=== PATIENT | male | born 1990 | race Two or more races ===

== ENCOUNTER 2021-09-11 07:52 | Outpatient (REF) | payer OTHER, SELFPAY ==
[2021-09-11 08:07] LABS: MANUAL DIFF FLAG NO
[2021-09-11 08:25] LABS: Basophils Percent Auto 0.5 % (0-2); Eosinophils Absolute Auto 0.1 X10*3/uL (0.0-0.4); Eosinophils Percent Auto 1.7 % (0-4); Hematocrit 47.4 % (42.0-52.0); Hemoglobin 15.9 g/dl (14.0-18.0); Imm Gran Abs Auto 0.02 X10*3/uL (0.00-0.03); Imm Gran Pct Auto 0.3 % (0.0-0.4); Lymphocytes Percent Auto 35.3 % (20-40); Mean Corpuscular HGB Conc 33.5 g/dl (31.0-36.0); Mean Corpuscular Hemoglobin 29.1 pg (27.0-33.0); Mean Corpuscular Volume 86.7 fL (80.0-98.0); Mean Platelet Volume 9.3 fL (9.4-12.4); Monocytes Absolute Auto 0.7 X10*3/uL (0.1-1.2); Monocytes Percent Auto 12.8 % (2-11); Neutrophils Absolute Auto 2.8 x10*3/uL (2.0-8.3); Neutrophils Percent Auto 49.4 % (45-73); Platelet Count 273 X10*3/uL (160-400); Red Blood Count 5.47 X10*6/uL (4.60-5.80); Red Cell Distribution Width 12.2 % (11.0-16.0); White Blood Count 5.7 X10*3/uL (4.8-10.8)
[2021-09-11 08:51] LABS: Alanine Aminotransferase 13 U/L (0-40); Albumin Level 4.5 g/dL (3.5-5.0); Alkaline Phosphatase 44 U/L (39-117); Anion Gap 11 (12-20); Aspartate Amino Transferase 12 U/L (5-37); Bilirubin Total 0.9 mg/dL (0.0-1.0); Blood Urea Nitrogen 10 mg/dL (9-16); Calcium 9.5 mg/dL (8.4-10.2); Carbon Dioxide 30 mmol/L (22-29); Chloride 101 mmol/L (96-108); Cholesterol 175 mg/dL; Estimated Glomerular Filt Rate > 60; Glucose Fasting 89 mg/dL (60-99); HDL Cholesterol 42 mg/dL; LDL Cholesterol Calculated 122 mg/dl; Potassium 4.4 mmol/L (3.3-5.1); Sodium 138 mmol/L (135-145); Total Protein 7.7 g/dL (6.5-8.0); Triglycerides 55 mg/dL
[2021-09-11 09:11] LABS: TSH reflex Free T4 1.26 uIU/mL (0.32-4.0); Vitamin D 25-OH Total 17.5 ng/mL (>30)
[2021-09-11 09:16] LABS: Appearance Urine CLEAR; Color Urine YELLOW; Glucose Urine UA NEG (NEG); Leukocyte Esterase Urine NEG (NEG); Nitrite Urine NEG (NEG); Specific Gravity - Urine 1.015 (1.005-1.025); Urine Blood NEG (NEG); Urine Ketones 15 MG/DL (NEG); Urine Protein NEG (NEG-TRACE)
== END 2021-09-11 07:53 | disposition home or self-care (01) ==
LOC: HO.LAB 07:52
PROVIDERS: PCP Internal Medicine; Visit Provider Internal Medicine
DX: Z00.00 Encounter for general adult medical examination without abnormal findings (principal); E66.9 Obesity, unspecified; E55.9 Vitamin D deficiency, unspecified
CPT/HCPCS: 36415; 80053; 80061; 81003; 82306; 84443; 85025

== ENCOUNTER 2021-10-22 11:17 | Emergency (ER) | payer OTHER, SELFPAY ==
--- NOTE | ~2021-10-22 | US_ITS ---
EXAMINATION: US SCROTUM CLINICAL INFORMATION: Testicular pain.. COMPARISON: None TECHNIQUE: A sonogram of the scrotum was performed assessing love-scale appearance and color Doppler flow. Spectral Doppler analysis of the arterial and venous flow were performed in the testes bilaterally. FINDINGS: RIGHT: Right testicle measures 4.6 x 2.2 x 2.9 cm, volume 15.6 mL. No focal testicular parenchymal lesions are visualized except for multiple echogenic calcifications. The largest calcification measures 0.1 x 0.2 x 0.2 cm.. Spectral Doppler analysis of the arterial and venous flow is normal in the right testis. Right epididymal head is normal in size. There is a right epididymal cyst measuring 0.3 x 0.3 x 0.3 cm. No right hydrocele or varicocele is seen. Right epididymal Doppler flow is normal. LEFT: Left testicle measures 4.5 x 2.2 x 3.2 cm, volume 16.0 mL. No focal testicular parenchymal lesions are visualized axial small echogenic calcification. The largest measuring 0.06 x 0.05 x 0.05. Spectral Doppler analysis of the arterial and venous flow is normal in the left testis. Left epididymal head is normal in size. There is a small left epididymal cyst measuring 0.5 0.3 x 0.3 cm. There is a small left hydrocele. No varicocele is seen. Left epididymal Doppler flow is normal. US/US scrotum doppler IMPRESSION: Bilateral testicular echogenic calcifications but no focal lesion. Normal flow. Normal bilateral epididymis except for bilateral epididymal cysts and small left hydrocele.
--- NOTE | ~2021-10-22 | US_ITS ---
EXAMINATION: US SCROTUM CLINICAL INFORMATION: Testicular pain.. COMPARISON: None TECHNIQUE: A sonogram of the scrotum was performed assessing love-scale appearance and color Doppler flow. Spectral Doppler analysis of the arterial and venous flow were performed in the testes bilaterally. FINDINGS: RIGHT: Right testicle measures 4.6 x 2.2 x 2.9 cm, volume 15.6 mL. No focal testicular parenchymal lesions are visualized except for multiple echogenic calcifications. The largest calcification measures 0.1 x 0.2 x 0.2 cm.. Spectral Doppler analysis of the arterial and venous flow is normal in the right testis. Right epididymal head is normal in size. There is a right epididymal cyst measuring 0.3 x 0.3 x 0.3 cm. No right hydrocele or varicocele is seen. Right epididymal Doppler flow is normal. LEFT: Left testicle measures 4.5 x 2.2 x 3.2 cm, volume 16.0 mL. No focal testicular parenchymal lesions are visualized axial small echogenic calcification. The largest measuring 0.06 x 0.05 x 0.05. Spectral Doppler analysis of the arterial and venous flow is normal in the left testis. Left epididymal head is normal in size. There is a small left epididymal cyst measuring 0.5 0.3 x 0.3 cm. There is a small left hydrocele. No varicocele is seen. Left epididymal Doppler flow is normal. US/US scrotum IMPRESSION: Bilateral testicular echogenic calcifications but no focal lesion. Normal flow. Normal bilateral epididymis except for bilateral epididymal cysts and small left hydrocele.
[2021-10-22 11:38] VITALS: BP 142/88; PULSE 110; RESP 16; TEMP 36.6; O2SAT 97; BMI 33.0
--- NOTE | 2021-10-22 11:47 | ED.MALEGU ---
HPI - Male Genitourinary General Chief complaint: Urogenital-Male Stated complaint: Testicle pain Time Seen by Provider: 10/22/21 11:46 Source: patient Mode of arrival: ambulatory Limitations: no limitations History of Present Illness HPI Narrative: 31 y/o male with history of Asperger's syndrome, obesity who presents to the ER with intermitten testicular pains for the last 1 month. He reports the pain is a dull ache and it comes and goes. Two weeks ago it was severe and went away with rest and anti-inflammatory medication. He reports intermittent and mild dysuria and frequency but denies any hematuria, flank pain, N/V/D or abdominal pain. Denies any sexual activity and says he is a virgin. Complaint: testicle pain Onset (ago): week(s) (4) Duration: constant Location: right testicle and left testicle Severity: moderate Severity scale (1-10): 5 Quality: aching and dull Relieving factors: medication Exacerbating factors: palpation Associated symptoms: Reports dysuria Related Data Sexually active: No Previous Rx's Medication Instructions Recorded levofloxacin 500 mg tablet 500 mg PO DAILY #10 tab 10/22/21 naproxen 500 mg tablet 500 mg PO BID #20 tab 10/22/21 Allergies Allergy/AdvReac Type Severity Reaction Status Date / Time No Known Allergies Allergy Unverified 09/05/21 16:51 [No Known Allergies*] Review of Systems Review of Systems: Constitutional: No Fever, No Chills ENT/Mouth: No sore throat Cardiovascular: No Chest Pain, No SOB Gastrointestinal: No Nausea, No Vomiting, No Diarrhea, No abdominal Pain, No Hematochezia, No Melena Genitourinary: + Dysuria, + Urinary Frequency, No Hematuria, +testicular pain, No genital lesions Musculoskeletal: No joint pain, No Myalgias Skin: No Skin Lesions, No rash Psych: +Anxiety/Panic, No Depression Heme/Lymph: No Lymphadenopathy Endocrine: No Polyuria, No Polydipsia PMFSH Past Medical History Medical History (Updated 10/22/21 @ 14:12 by HECTOR Rodarte) Asperger's syndrome Attention deficit disorder (ADD) Autism Learning disability Major depression Obesity (BMI 30-39.9) Surgical History No pertinent past surgical history Family History Family History Mother No problems noted. Father No problems noted. Other Substance abuse Social History Social History Housing: House Alcohol intake: never Patient Tobacco Use Status: Never used Tobacco Second Hand Smoke Exposure: Yes Advance Directives: No service: No Current occupational status: disabled Physical Exam Vital Signs: Vital Signs: Last Vital Signs Temp 97.8 F 10/22/21 11:38 Pulse 110 H 10/22/21 11:38 Resp 16 10/22/21 11:38 BP 142/88 H 10/22/21 11:38 Pulse Ox 97 10/22/21 11:38 BMI result Body Mass Index 33.0 Course Course Course Narrative: 31 y/o male presenting with intermittent bilateral testicular pain L>R that has been coming and going for 1 month. Not sexually active. Also reports mild dysuria and urinary frequency. No abdominal pain, nausea, vomiting. On arrival his vital signs are normal. Exam is unremarkable. Will get testicular ultrasound and urinalysis. Reevaluation(s) Reevaluation #1: Testicular ultrasound showing bilateral testicle calcifications are no focal lesions, there is normal flow. There is normal bilateral epididymis except for bilateral epididymal cysts and small left hydrocele. Given his symptoms will empirically treat with 10 day course of Levaquin and have follow-up with Dr. Boo from urology. Patient agrees with plan. Stable for discharge home. MDM - Male Genitourinary Lab Data Labs: Lab Results 10/22/21 Range/Units 14:00 Urine Color YELLOW Urine Appearance CLEAR Urine pH 7.0 (5.0-8.0) Ur Specific [place] 1.020 (1.005-1.025) Urine Protein NEG (NEG-TRACE) MG/DL Urine Glucose (UA) NEG (NEG) MG/DL Urine Ketones NEG (NEG) MG/DL Urine Blood NEG (NEG) Urine Nitrite NEG (NEG) Ur Leukocyte Esterase NEG (NEG) Critical Care Time Critical Care Time Critical Care Time: No Discharge Plan Discharge Clinical Impression: Testicular pain Patient Disposition: Home, Self-Care Additional Instructions: Your ultrasound today was unremarkable. Your urinalysis was negative for infection. Take the prescribed antibiotic for possible inflammation and infection of the epididymis. Recommend following up with Urology in 2 weeks. If you develop new or worsening symptoms call 911 or come back to the ER for further evaluation. Prescriptions: New levofloxacin 500 mg tablet 500 mg PO DAILY Qty: 10 0RF naproxen 500 mg tablet 500 mg PO BID Qty: 20 0RF Referrals: Nathaniel Boo MD [Physician] - 2 weeks (testicular pain x1 month)
[2021-10-22 14:08] LABS: Appearance Urine CLEAR; Color Urine YELLOW; Glucose Urine UA NEG (NEG); Leukocyte Esterase Urine NEG (NEG); Nitrite Urine NEG (NEG); Urine Blood NEG (NEG); Urine Ketones NEG (NEG); Urine Protein NEG (NEG-TRACE)
[2021-10-22 16:23] LABS: CT PCR NOT DETECTED (Not Detect.); NG PCR NOT DETECTED (Not Detect.)
== END 2021-10-22 14:33 | disposition home or self-care (01) ==
PROVIDERS: Physician Assistant; Emergency Provider Emergency Medicine; PCP Internal Medicine
DX: N50.811 Right testicular pain (principal); N50.812 Left testicular pain; Z79.899 Other long term (current) drug therapy
CPT/HCPCS: 76870; 81003; 87491; 87591; 93975; 99284

== ENCOUNTER 2021-11-01 08:55 | Emergency (ER) | payer OTHER, SELFPAY ==
--- NOTE | ~2021-11-01 | US_ITS ---
EXAMINATION: US SCROTUM CLINICAL INFORMATION: Left greater than right testicular pain. COMPARISON: Ultrasound scrotum 10/22/2021, 10 days ago TECHNIQUE: A sonogram of the scrotum was performed assessing love-scale appearance and color Doppler flow. Spectral Doppler analysis of the arterial and venous flow were performed in the testes bilaterally. FINDINGS: RIGHT: Right testicle measures 4.9 x 2.3 x 2.9 cm, volume 17.3 mL. Few scattered calcifications are seen. No focal testicular parenchymal lesions are visualized. Spectral Doppler analysis of the arterial and venous flow is normal in the right testis. Right epididymal head is normal in size. There is a small 5 mm epididymal cyst in the head. No right hydrocele or varicocele is seen. Right epididymal Doppler flow is normal. LEFT: Left testicle measures 4.7 x 2.2 x 3.0 cm, volume 16.1 mL. A few scattered calcifications are seen. No focal testicular parenchymal lesions are visualized. Spectral Doppler analysis of the arterial and venous flow is normal in the left testis. Left epididymal head is normal in size. Small 3 mm epididymal cyst in the head. There is a small left hydrocele. No left varicocele is seen. Left epididymal Doppler flow is normal. US/US scrotum IMPRESSION: No interval change from the study of 10 days ago with no significant abnormality is seen. Again noted are normal-appearing testes aside from a few scattered calcifications. No testicular masses are seen. Other findings as above.
--- NOTE | ~2021-11-01 | US_ITS ---
EXAMINATION: US SCROTUM CLINICAL INFORMATION: Left greater than right testicular pain. COMPARISON: Ultrasound scrotum 10/22/2021, 10 days ago TECHNIQUE: A sonogram of the scrotum was performed assessing love-scale appearance and color Doppler flow. Spectral Doppler analysis of the arterial and venous flow were performed in the testes bilaterally. FINDINGS: RIGHT: Right testicle measures 4.9 x 2.3 x 2.9 cm, volume 17.3 mL. Few scattered calcifications are seen. No focal testicular parenchymal lesions are visualized. Spectral Doppler analysis of the arterial and venous flow is normal in the right testis. Right epididymal head is normal in size. There is a small 5 mm epididymal cyst in the head. No right hydrocele or varicocele is seen. Right epididymal Doppler flow is normal. LEFT: Left testicle measures 4.7 x 2.2 x 3.0 cm, volume 16.1 mL. A few scattered calcifications are seen. No focal testicular parenchymal lesions are visualized. Spectral Doppler analysis of the arterial and venous flow is normal in the left testis. Left epididymal head is normal in size. Small 3 mm epididymal cyst in the head. There is a small left hydrocele. No left varicocele is seen. Left epididymal Doppler flow is normal. US/US scrotum doppler IMPRESSION: No interval change from the study of 10 days ago with no significant abnormality is seen. Again noted are normal-appearing testes aside from a few scattered calcifications. No testicular masses are seen. Other findings as above.
[2021-11-01 09:11] VITALS: BP 125/99; PULSE 92; RESP 18; TEMP 36.7; O2SAT 99; BMI 30.1
--- NOTE | 2021-11-01 12:32 | ED_ITS ---
HPI - Male Genitourinary General Chief complaint: Urogenital-Male Stated complaint: testicle issues Time Seen by Provider: 11/01/21 10:02 Source: patient and family (mom) Mode of arrival: ambulatory Limitations: no limitations History of Present Illness HPI Narrative: 31-year-old male with a history of obesity and Asperger's presents with continuing testicle pain. Patient was seen in the emergency room 10 days ago, stated his testicular pain has been going on for greater than a month. Patient states his testicular pain radiates into his bilateral lower abdomen. He has some burning when he urinates. No pain with ejaculation. No fevers. No hematuria. Patient is a virgin and has no concern for STDs Patient was seen here on 10/22/2021, diagnosed with epididymitis, put on 10 days of Levaquin today would be day 10, ultrasound showed ilateral testicular echogenic calcifications but no focal lesion. Normal flow. Normal bilateral epididymis except for bilateral epididymal cysts and small left hydrocele. ? MD Complaint: testicle pain and dysuria Onset (ago): month(s) (1.5) Location: right testicle and left testicle Severity: moderate Related Data Previous Rx's Medication Instructions Recorded levofloxacin 500 mg tablet 500 mg PO DAILY #10 tab 10/22/21 naproxen 500 mg tablet 500 mg PO BID #20 tab 10/22/21 levofloxacin 500 mg tablet 500 mg PO DAILY 7 Days #7 tab 11/01/21 meloxicam 15 mg tablet 15 mg PO DAILY 30 Days #30 tab 11/01/21 Allergies Allergy/AdvReac Type Severity Reaction Status Date / Time No Known Allergies Allergy Verified 11/01/21 11:40 Review of Systems Constitutional: Constitutional: Denies body ache(s), Denies chills, Denies fatigue, Denies fever(s), Denies headache(s), Denies malaise and Denies weakness Eyes: Eyes: Denies diplopia ENT: Denies vertigo, Denies dizziness, Denies headache(s) and Denies throat swelling Cardiovascular: Cardiovascular: Denies chest pain, Denies syncope, Denies leg edema, Denies lightheadedness, Denies Loss of Consciousness, Denies palpitations and Denies dyspnea Respiratory: Respiratory: Denies chest congestion, Denies cough and Denies dyspnea Gastrointestinal: Gastrointestinal: Reports abdominal pain, Denies hematochezia, Denies constipation, Denies diarrhea and Denies vomiting Genitourinary: Genitourinary: Denies hematuria, Denies difficulty urinating, Denies difficulty with ejaculations, Reports dysuria, Denies flank pain, Denies painful ejaculations, Denies penile discharge, Reports testicular pain, Denies urinary incontinence and Denies urinary urgency Musculoskeletal: Musculoskeletal: Reports no additional musculoskeletal complaints Neurologic: Denies confusion, Denies vertigo, Denies dizziness, Denies syncope, Denies headache(s) and Denies weakness Psychiatric: Psychiatric: Denies anxiety, Denies confusion and Denies depression Endocrine: Endocrine: Denies fatigue and Denies palpitations Allergic/Immunologic: Allergic/Immunologic: Denies throat swelling PMFSH Past Medical History Medical History (Updated 11/01/21 @ 13:17 by HECTOR Alarcon) Asperger's syndrome Attention deficit disorder (ADD) Autism Epididymitis Learning disability Major depression Obesity (BMI 30-39.9) Surgical History No pertinent past surgical history Family History Family History (System 11/01/21 @ 11:40 by Yaquelin Wood) Mother No problems noted. Father No problems noted. Other Substance abuse Social History Social History (System 11/01/21 @ 11:40 by Yaquelin Wood) Housing: House Alcohol intake: never Patient Tobacco Use Status: Never used Tobacco Second Hand Smoke Exposure: Yes Advance Directives: No Advance Directives Information Provided: Yes service: No Current occupational status: disabled Physical Exam Vital Signs: Vital Signs: Last Vital Signs Temp 98.1 F 11/01/21 09:11 Pulse 92 11/01/21 09:11 Resp 18 11/01/21 09:11 BP 125/99 H 11/01/21 09:11 Pulse Ox 99 11/01/21 09:11 BMI result Body Mass Index 30.1 Const: General: No confusion Nutritional Appearance: well nourished Orientation/consciousness: No confusion Limitations: no limitations Eyes: Conjunctivae: conjunctivae normal Pupils: Equal, round and reactive pupils present EOM: EOMs intact bilaterally Neck: Neck: Yes full ROM, Yes no lymphadenopathy and Yes supple Resp: Effort & Inspection: normal respiratory effort and able to speak in complete sentences Auscultation: clear to auscultation bilaterally, no crackles, no rales, no rhonchi and no wheezes Cardio: Rate: regular rate Rhythm: regular rhythm Heart sounds: S1 normal heart sound present and S2 normal heart sound present GI: Inspection: Yes normal to inspection Palpation (GI): Soft to palpation, nontender, no guarding and not rigid Percussion: Yes normal to percussion Auscultation: normal bowel sounds : General: Yes no CVA tenderness Male General Exam: Yes normal external exam and No Genital lesions present Penis: normal penis, circumcised, no ecchymosis, not edematous, not erythematous, no masses, no nodules, no papules, no pustules, no vesicles, no paraphimosis, no phimosis, no swelling, no ulcerations and No Genital lesions present Meatus: meatus normal, no meatla discharge and No Blood at meatus present Scrotum: scrotum normal, not edematous, not erythematous, testes descended bilaterally and no inguinal hernias Testes: Testes normal, no epidiymal masses, epididymal tenderness (L>R), no testicular mass and no testicular swelling Back/Spine/Pelvis: Back: no CVA tenderness Skin: General skin exam: no rashes or lesions noted Neuro: General: No confusion Cranial nerves: Yes Equal, round and reactive pupils present Extrem: General: Yes normal to inspection and Yes full ROM Psych: Appearance: grossly normal Affect: normal affect Attitude: cooperative Thought process: Normal thought process present Course Course Course Narrative: 31-year-old autistic male here for continuing testicular pain, left greater than right. Patient has been on 10 days of Levaquin, states that his testicular pain started over a month ago, was here 10 days ago diagnosed with epididymitis. Had a negative ultrasound. Was supposed to follow-up with Dr. Boo, but was unable to so far. On exam, patient has stable vitals, exam is notable for epididymal tenderness left greater than right Benign abdominal exam, no CVA tenderness. Will get ultrasound, urine, labs, CT NG Texted Dr. Boo to see if he could see patient today, Dr. Boo, urologist, stated patient needed NSAID treatment and would give Mobic 15 mg daily for a mon th and would extend Levaquin course for another week. Reevaluation(s) Reevaluation #1: Urine is clean, CBC shows no leukocytosis, chemistry is normal Ultrasound is unchanged from 10 days ago Will provide meloxicam, will extend antibiotic course for another week, will follow up with Urology. MDM - Male Genitourinary Lab Data Result diagrams: 11/01/21 12:54 11/01/21 12:54 Labs: Lab Results 11/01/21 11/01/21 11/01/21 Range/Units 12:54 12:54 12:58 WBC 5.0 (4.8-10.8) X10*3/uL RBC 5.50 (4.60-5.80) X10*6/uL Hgb 16.0 (14.0-18.0) g/dl Hct 47.2 (42.0-52.0) % MCV 85.8 (80.0-98.0) fL MCH 29.1 (27.0-33.0) pg MCHC 33.9 (31.0-36.0) g/dl RDW 12.2 (11.0-16.0) % Plt Count 291 (160-400) X10*3/uL MPV 9.2 L (9.4-12.4) fL Immature Gran % (Auto) 0.6 H (0.0-0.4) % Neut % (Auto) 66.4 (45-73) % Lymph % (Auto) 21.4 (20-40) % [place] % (Auto) 10.0 (2-11) % Eos % (Auto) 1.0 (0-4) % Baso % (Auto) 0.6 (0-2) % Lymph # (Auto) 1.1 L (1.2-4.9) X10*3/uL [place] # (Auto) 0.5 (0.1-1.2) X10*3/uL Eos # (Auto) 0.1 (0.0-0.4) X10*3/uL Baso # (Auto) 0.0 (0.0-0.2) X10*3/uL Abs Immat Gran (auto) 0.03 (0.00-0.03) X10*3/uL Absolute Neuts (auto) 3.3 (2.0-8.3) x10*3/uL Absolute Nucleated RBC 0.000 (0.0-0.012) X10*3/uL Nucleated RBC % (auto) 0.0 (0.0-0.2) /100WBC Sodium 138 (135-145) mmol/L Potassium 3.8 (3.3-5.1) mmol/L Chloride 103 (96-108) mmol/L Carbon Dioxide 28 (22-29) mmol/L Anion Gap 11 L (12-20) BUN 8 L (9-16) mg/dL Creatinine 0.98 (0.5-1.4) mg/dL Estim Creat Clear Calc 124.1 Estimated GFR > 60 Random Glucose 96 (60-115) mg/dL Calcium 9.8 (8.4-10.2) mg/dL Total Bilirubin 1.0 (0.0-1.0) mg/dL AST 15 (5-37) U/L ALT 13 (0-40) U/L Alkaline Phosphatase 46 (39-117) U/L Total Protein 8.0 (6.5-8.0) g/dL Albumin 4.7 (3.5-5.0) g/dL Urine Color YELLOW Urine Appearance CLEAR Urine pH 7.5 (5.0-8.0) Ur Specific [place] 1.010 (1.005-1.025) Urine Protein NEG (NEG-TRACE) MG/DL Urine Glucose (UA) NEG (NEG) MG/DL Urine Ketones NEG (NEG) MG/DL Urine Blood NEG (NEG) Urine Nitrite NEG (NEG) Ur Leukocyte Esterase NEG (NEG) Discharge Plan Discharge Clinical Impression: Epididymitis Patient Disposition: Home, Self-Care Instructions: Epididymitis (ED), Testicle Pain (ED) Additional Instructions: Please call the urologist, at the following number [phone] I have referred you to them, that so they should also be calling you. I have prescribed to another week-long course of antibiotics, please take it as prescribed. In addition, I have prescribed meloxicam, which is a pain medication similar to ibuprofen. Please take it as prescribed, and do not take any ibuprofen containi ng medicine while your taking it. If you have fevers, worsening pain, nausea vomiting, or any other new or concerning symptoms please return to emergency room Prescriptions: New meloxicam 15 mg tablet 15 mg PO DAILY 30 Days Qty: 30 0RF levofloxacin 500 mg tablet 500 mg PO DAILY 7 Days Qty: 7 0RF No Action levofloxacin 500 mg tablet 500 mg PO DAILY Qty: 10 0RF naproxen 500 mg tablet 500 mg PO BID Qty: 20 0RF Referrals: Nathaniel Boo MD [Physician] -
[2021-11-01 12:58] LABS: MANUAL DIFF FLAG NO
[2021-11-01 12:59] LABS: Basophils Percent Auto 0.6 % (0-2); Eosinophils Absolute Auto 0.1 X10*3/uL (0.0-0.4); Hematocrit 47.2 % (42.0-52.0); Imm Gran Abs Auto 0.03 X10*3/uL (0.00-0.03); Imm Gran Pct Auto 0.6 % (0.0-0.4); Lymphocytes Absolute Auto 1.1 X10*3/uL (1.2-4.9); Lymphocytes Percent Auto 21.4 % (20-40); Mean Corpuscular HGB Conc 33.9 g/dl (31.0-36.0); Mean Corpuscular Hemoglobin 29.1 pg (27.0-33.0); Mean Corpuscular Volume 85.8 fL (80.0-98.0); Mean Platelet Volume 9.2 fL (9.4-12.4); Monocytes Absolute Auto 0.5 X10*3/uL (0.1-1.2); Neutrophils Absolute Auto 3.3 x10*3/uL (2.0-8.3); Neutrophils Percent Auto 66.4 % (45-73); Platelet Count 291 X10*3/uL (160-400); Red Cell Distribution Width 12.2 % (11.0-16.0)
[2021-11-01 13:09] LABS: Appearance Urine CLEAR; Color Urine YELLOW; Glucose Urine UA NEG (NEG); Leukocyte Esterase Urine NEG (NEG); Nitrite Urine NEG (NEG); PH 7.5 (5.0-8.0); Urine Blood NEG (NEG); Urine Ketones NEG (NEG); Urine Protein NEG (NEG-TRACE)
[2021-11-01 13:18] LABS: Alanine Aminotransferase 13 U/L (0-40); Albumin Level 4.7 g/dL (3.5-5.0); Alkaline Phosphatase 46 U/L (39-117); Anion Gap 11 (12-20); Aspartate Amino Transferase 15 U/L (5-37); Blood Urea Nitrogen 8 mg/dL (9-16); Calcium 9.8 mg/dL (8.4-10.2); Carbon Dioxide 28 mmol/L (22-29); Chloride 103 mmol/L (96-108); Creatinine Clr Calc Pharmacy 124.1; Estimated Glomerular Filt Rate > 60; Glucose Random 96 mg/dL (60-115); Potassium 3.8 mmol/L (3.3-5.1); Sodium 138 mmol/L (135-145)
[2021-11-01 15:31] LABS: CT PCR NOT DETECTED (Not Detect.); NG PCR NOT DETECTED (Not Detect.)
== END 2021-11-01 15:03 | disposition home or self-care (01) ==
PROVIDERS: Physician Assistant; Physician Assistant Medical; Emergency Provider Emergency Medicine; PCP Internal Medicine
DX: N45.1 Epididymitis (principal); F84.5 Asperger's syndrome
CPT/HCPCS: 36415; 76870; 80053; 81003; 85025; 87491; 87591; 93975; 99283; 99284

== ENCOUNTER → 2021-12-14 10:59 | Outpatient (BNVA) | payer OTHER, SELFPAY | PROVIDERS: PCP Internal Medicine; Visit Provider Urology | DX: N45.1 Epididymitis (principal); N43.3 Hydrocele, unspecified | CPT/HCPCS: 99202 ==